=== PATIENT | female | born 1990 | race African-American/Black ===

== ENCOUNTER 2020-05-24 10:56 | Inpatient (IN) | payer MEDICAID ==
[~2020-05-24] VITALS: Ht 170.2 cm; Wt 95.5 kg
[2020-05-24] VITALS (25 sets, daily range): BP systolic 108–141; BP diastolic 55–86; PULSE 87–120; TEMP 98–98.8
[2020-05-24] MEDS ORDERED: PRENATAL 19 CH1 EACH PO (11:25)
[2020-05-24 12:35] LABS: TRICYCLIC ANTIDEPRESS URINE NEGATIVE
[2020-05-24 13:27] LABS: HEMATOCRIT 37.9 % (37.0-47.0); HEMOGLOBIN 12.7 g/dl (12.5-16.0); MEAN CELL VOLUME 87 fl (80.0-100.0); MEAN CORPUSCULAR HEMOGLOBIN 29 pg (27.0-31.0); MEAN CORPUSCULAR HGB CONC 34 g/dl (33.0-37.0); MEAN PLATELET VOLUME 10.4 fl (7.4-10.4); PLATELET COUNT 183 K/mm3 (130-400); RED BLOOD COUNT 4.37 M/mm3 (4.10-5.30); REDCELL DISTRIBUTION WIDTH-CV 13.2 % (11.5-14.5)
[2020-05-24 13:39] LABS: BAND 4 % (0-10); EOSINOPHIL 1 % (0-4); LYMPHOCYTE 21 % (20.0-51.0); METAMYELOCYTE 2 % (0-0); NEUTROPHILS 64 % (42.0-75.2); PLATELET ESTIMATE NORMAL (NORMAL)
[2020-05-25] VITALS: BP 109/67; PULSE 87; TEMP 98.6
[2020-05-25 07:10] VITALS: BP 105/62; PULSE 93; TEMP 99
[2020-05-25] MEDS ORDERED: IBU600 MG PO (08:43)
[2020-05-25 12:31] VITALS: BP 114/80; PULSE 97; TEMP 98.6
[2020-05-25 15:53] VITALS: BP 111/75; PULSE 100; TEMP 98.3
[2020-05-25 20:30] VITALS: BP 116/76; PULSE 102; TEMP 99
[2020-05-26 09:15] VITALS: BP 108/31; PULSE 100; TEMP 98.1
== END 2020-05-26 12:30 | disposition home or self-care (01) | DRG 807 ==
LOC: LDRO 10:56 → OB 12:34 → LDR 12:34 → OB 21:21
PROVIDERS: ADMIT Obstetrics & Gynecology
PROC: 10E0XZZ Delivery of Products of Conception, External Approach (ICD-10-PCS; principal; 2020-05-24)
DX: O98.82 Other maternal infectious and parasitic diseases complicating childbirth (principal); Z37.0 Single live birth; B95.1 Streptococcus, group B, as the cause of diseases classified elsewhere; O99.824 Streptococcus B carrier state complicating childbirth; Z3A.38 38 weeks gestation of pregnancy
CPT/HCPCS: J2540; J2590; J7120